=== PATIENT | female | born 1955 | race Caucasian/White ===

== ENCOUNTER 2024-06-03 15:58 | Outpatient (CLI) | payer MEDICARE, BC | END 2024-06-03 15:59 | disposition home or self-care (01) | LOC: RAD 15:58 | PROVIDERS: ATTEND Family Medicine | DX: M25.531 Pain in right wrist (principal) ==

== ENCOUNTER 2024-06-10 14:08 | Outpatient (CLI) | payer MEDICARE, BC | END 2024-06-10 14:09 | disposition home or self-care (01) | LOC: SCSMRI 14:08 | PROVIDERS: ATTEND Family Medicine | DX: G25.2 Other specified forms of tremor (principal); M54.11 Radiculopathy, occipito-atlanto-axial region; M47.812 Spondylosis without myelopathy or radiculopathy, cervical region; M48.02 Spinal stenosis, cervical region | CPT/HCPCS: 70551; 72141 ==

== ENCOUNTER 2025-06-24 16:10 | Outpatient (CLI) | payer MEDICARE, BC | END 2025-06-24 16:11 | disposition home or self-care (01) | LOC: SCSRAD 16:10 | PROVIDERS: ATTEND Internal Medicine Gastroenterology | DX: K56.41 Fecal impaction (principal); R19.4 Change in bowel habit; Z86.0100 Personal history of colon polyps, unspecified | CPT/HCPCS: 74018 ==

== ENCOUNTER 2025-10-17 13:59 | Outpatient (CLI) | payer MEDICARE, BC ==
[2025-10-17 14:59] LABS: #Basophils 0.11 10x3/uL (0.0-0.2); #Eosinophils 0.37 10x3/uL (0.0-0.7); #Monocytes 1.10 10x3/uL (0.11-0.59); #Neutrophils 6.11 10x3/uL (1.40-6.50); %Basophils 1.0 % (0.0-1.0); %Eosinophils 3.4 % (0.0-10.0); %Lymphocytes 29.1 % (21.0-51.0); %Monocytes 10.1 % (0.0-10.0); %Neutrophils 56.0 % (42.0-75.0); Hematocrit 42.9 % (36.0-47.0); Hemoglobin 14.1 g/dL (12.0-16.0); Mean Corpuscular Hemoglobin 29.3 pg (27.0-31.0); Mean Corpuscular Volume 89.2 fL (78.0-98.0); Platelet Count 273 10x3/uL (130-400); Red Blood Cell (RBC) Count 4.81 mill/uL (4.20-5.40); White Blood Cell (WBC) Count 10.90 10x3/uL (4.8-10.8)
[2025-10-17 15:10] LABS: ALT (SGPT) 15 U/L (Less than 34); AST (SGOT) 19 U/L (11-34); Albumin 3.6 g/dL (3.1-4.5); Alkaline Phosphatase 59 U/L (40-110); Anion Gap 13 mmol/L (10-20); BUN (Urea Nitrogen) 26 mg/dL (9.8-20.1); Bilirubin, Direct 0.1 mg/dL (0.1-0.3); Bilirubin, Total 0.2 mg/dL (0.3-1.2); Calc. Creatinine Clearance 0 mL/min (70-130); Calcium 9.8 mg/dL (7.8-10.44); Carbon Dioxide 26 mmol/L (23-31); Chloride 104 mmol/L (98-107); Glucose 79 mg/dL (80-115); Potassium 3.8 mmol/L (3.5-5.1); Sodium 139 mmol/L (136-145)
[2025-10-17 15:13] LABS: INR-International Normal Ratio 1.0; Prothrombin Time 12.8 sec (12.0-14.7)
[2025-10-17 15:14] LABS: PTT 29.2 sec (22.9-36.1)
== END 2025-10-17 14:00 | disposition home or self-care (01) ==
LOC: LABBT 13:59
PROVIDERS: ATTEND Orthopaedic Surgery Hand Surgery
DX: Z01.818 Encounter for other preprocedural examination (principal); T84.84XA Pain due to internal orthopedic prosthetic devices, implants and grafts, initial encounter
CPT/HCPCS: 80048; 80076; 85025; 85610; 85730; 93005; 93010

== ENCOUNTER 2025-10-23 02:31 | Inpatient (IN) | payer MEDICARE, BC ==
[2025-10-23] MEDS ORDERED: Norepinephrine 8 MG/0.9% NS 250 ML ONE (03:09)
[2025-10-23 03:21] LABS: #Basophils 0.03 10x3/uL (0.0-0.2); #Eosinophils 0.30 10x3/uL (0.0-0.7); #Monocytes 0.61 10x3/uL (0.11-0.59); #Neutrophils 9.97 10x3/uL (1.40-6.50); %Basophils 0.3 % (0.0-1.0); %Eosinophils 2.5 % (0.0-10.0); %Lymphocytes 5.9 % (21.0-51.0); %Monocytes 5.2 % (0.0-10.0); %Neutrophils 84.5 % (42.0-75.0); Hematocrit 39.1 % (36.0-47.0); Hemoglobin 12.9 g/dL (12.0-16.0); Mean Corpuscular Hemoglobin 29.5 pg (27.0-31.0); Mean Corpuscular Volume 89.3 fL (78.0-98.0); Platelet Count 186 10x3/uL (130-400); Red Blood Cell (RBC) Count 4.38 mill/uL (4.20-5.40); White Blood Cell (WBC) Count 11.79 10x3/uL (4.8-10.8)
[2025-10-23 03:38] LABS: ALT (SGPT) 13 U/L (Less than 34); AST (SGOT) 27 U/L (11-34); Albumin 2.8 g/dL (3.1-4.5); Alkaline Phosphatase 76 U/L (40-110); Anion Gap 18 mmol/L (10-20); BUN (Urea Nitrogen) 27 mg/dL (9.8-20.1); Bilirubin, Total 0.4 mg/dL (0.3-1.2); CK (CPK) 92 U/L (29-168); Calc. Creatinine Clearance 0 mL/min (70-130); Calcium 8.5 mg/dL (7.8-10.44); Carbon Dioxide 19 mmol/L (23-31); Chloride 107 mmol/L (98-107); Globulin 3.3 g/dL (2.4-3.5); Glucose 118 mg/dL (80-115); Lipase 12 U/L (8-78); Potassium 3.0 mmol/L (3.5-5.1); Sodium 141 mmol/L (136-145)
[2025-10-23] MEDS ORDERED: Acetaminophen 500 MG TAB ONE (03:44)
[2025-10-23] MEDS ORDERED: Potassium Bicarbonate/Cit Ac 20 MEQ TAB ONE (03:45)
[2025-10-23] MEDS ORDERED: Ventilator Sedation Protocol 1 EACH FS SCH (05:30)
[2025-10-23] MEDS ORDERED: Propofol BOLUS 1,000 MG/100 ML VIAL IV PRN (05:45)
[2025-10-23] MEDS ORDERED: DISCONTINUE PREVIOUS NARCOTIC PAIN MEDICATIONS AND BENZODIAZEPINES FS SCH (05:45)
[2025-10-23] MEDS ORDERED: Fentanyl BOLUS 100 ML IVPB PRN (05:45)
[2025-10-23] MEDS ORDERED: Calcium Carbonate 500 MG ChewTAB PO PRN (06:10)
[2025-10-23] MEDS ORDERED: Ondansetron PF 4 MG/2 ML Vial IVP PRN (06:10)
[2025-10-23] MEDS: Vancomycin (BATCH) 2.5 GM in Premix 1 BAG IVPB SCH (06:34)
[2025-10-23] MEDS ORDERED: Electrolyte Replacement Protocol 1 EACH FS SCH (09:30)
[2025-10-23] MEDS ORDERED: Magnesium Sulfate In Water 4 GM in Premix 1 BAG IVPB PRN (09:30)
[2025-10-23] MEDS ORDERED: PHOS-NAK 1 PKT PACK PO PRN (09:30)
[2025-10-23] MEDS ORDERED: Potassium Chloride 20 MEQ in Premix 1 BAG IVPB PRN (09:30)
[2025-10-23] MEDS: Pantoprazole 40 MG VIAL IVP SCH (09:33)
[2025-10-23] MEDS: FLU (Fluad Triv) 25-26 (65UP)PF 45 MCG/0.5 ML Syringe IM ONE (09:34)
[2025-10-23] MEDS ORDERED: Iopamidol-370 76% 500 ML MDV (1 ML CHARGE) ONE (10:07)
[2025-10-23] MEDS: Dexamethasone 10 MG/ML VIAL SLOW IVP SCH (11:08)
[2025-10-23] MEDS: Norepinephrine 8 MG/0.9% NS 250 ML IVPB SCH (14:26)
[2025-10-23] MEDS: Midazolam In 0.9 % NaCl/PF 100 ML IVPB SCH (20:23)
[2025-10-24 04:40] LABS: #Basophils 0.04 10x3/uL (0.0-0.2); #Eosinophils Less than 0.03 10x3/uL (0.0-0.7); #Monocytes 1.34 10x3/uL (0.11-0.59); #Neutrophils 13.45 10x3/uL (1.40-6.50); %Basophils 0.2 % (0.0-1.0); %Eosinophils 0.1 % (0.0-10.0); %Lymphocytes 7.7 % (21.0-51.0); %Monocytes 8.2 % (0.0-10.0); %Neutrophils 82.0 % (42.0-75.0); Hematocrit 33.8 % (36.0-47.0); Hemoglobin 11.2 g/dL (12.0-16.0); Mean Corpuscular Hemoglobin 29.8 pg (27.0-31.0); Mean Corpuscular Volume 89.9 fL (78.0-98.0); Platelet Count 186 10x3/uL (130-400); Red Blood Cell (RBC) Count 3.76 mill/uL (4.20-5.40); White Blood Cell (WBC) Count 16.40 10x3/uL (4.8-10.8)
[2025-10-24 04:57] LABS: Anion Gap 16 mmol/L (10-20); BUN (Urea Nitrogen) 33 mg/dL (9.8-20.1); Calc. Creatinine Clearance 47 mL/min (70-130); Calcium 8.9 mg/dL (7.8-10.44); Carbon Dioxide 20 mmol/L (23-31); Chloride 111 mmol/L (98-107); Glucose 112 mg/dL (80-115); Magnesium 2.0 mg/dL (1.6-2.6); Potassium 3.6 mmol/L (3.5-5.1); Sodium 143 mmol/L (136-145)
[2025-10-24] MEDS: Pantoprazole 40 MG VIAL IVP SCH (09:11)
[2025-10-24] MEDS: Dexamethasone 10 MG/ML VIAL SLOW IVP SCH (09:11)
[2025-10-24] MEDS: Gabapentin 300 MG CAP PO SCH (20:27)
[2025-10-24] MEDS: Mirtazapine 15 MG TAB PO SCH (20:27)
[2025-10-24] MEDS: Mupirocin 1 GM TUBE TP SCH (20:27)
[2025-10-24] MEDS: ALPRAZolam 0.25 MG TAB PO PRN (23:14)
[2025-10-25 05:57] LABS: #Basophils 0.03 10x3/uL (0.0-0.2); #Eosinophils Less than 0.03 10x3/uL (0.0-0.7); #Monocytes 1.23 10x3/uL (0.11-0.59); #Neutrophils 10.03 10x3/uL (1.40-6.50); %Basophils 0.2 % (0.0-1.0); %Eosinophils 0.0 % (0.0-10.0); %Lymphocytes 12.3 % (21.0-51.0); %Monocytes 9.5 % (0.0-10.0); %Neutrophils 77.5 % (42.0-75.0); Hematocrit 35.2 % (36.0-47.0); Hemoglobin 10.9 g/dL (12.0-16.0); Mean Corpuscular Hemoglobin 29.2 pg (27.0-31.0); Mean Corpuscular Volume 94.4 fL (78.0-98.0); Platelet Count 193 10x3/uL (130-400); Red Blood Cell (RBC) Count 3.73 mill/uL (4.20-5.40); White Blood Cell (WBC) Count 12.96 10x3/uL (4.8-10.8)
[2025-10-25 06:08] LABS: Anion Gap 12 mmol/L (10-20); BUN (Urea Nitrogen) 36 mg/dL (9.8-20.1); Calc. Creatinine Clearance 55 mL/min (70-130); Calcium 9.1 mg/dL (7.8-10.44); Carbon Dioxide 19 mmol/L (23-31); Chloride 114 mmol/L (98-107); Glucose 85 mg/dL (80-115); Potassium 3.9 mmol/L (3.5-5.1); Sodium 141 mmol/L (136-145)
[2025-10-25 07:38] VITALS: BMI 31.7
[2025-10-25] MEDS ORDERED: DC Sedation Protocol FS ONE (07:49)
[2025-10-25] MEDS: Divalproex Sodium DR 500 MG TAB PO SCH (09:19)
[2025-10-25] MEDS: Rosuvastatin 20 MG TAB PO SCH (09:22)
[2025-10-25] MEDS: Triamterene/Hydrochlorothiazide 37.5 mg/25 mg Tablet PO SCH (09:22)
[2025-10-25] MEDS: Primidone 50 MG TAB PO SCH (09:41)
[2025-10-25 11:48] VITALS: BMI 31.7
[2025-10-26 05:24] LABS: #Basophils 0.03 10x3/uL (0.0-0.2); #Eosinophils 0.34 10x3/uL (0.0-0.7); #Monocytes 1.06 10x3/uL (0.11-0.59); #Neutrophils 5.49 10x3/uL (1.40-6.50); %Basophils 0.3 % (0.0-1.0); %Eosinophils 3.9 % (0.0-10.0); %Lymphocytes 20.6 % (21.0-51.0); %Monocytes 12.0 % (0.0-10.0); %Neutrophils 62.2 % (42.0-75.0); Hematocrit 35.6 % (36.0-47.0); Hemoglobin 11.4 g/dL (12.0-16.0); Mean Corpuscular Hemoglobin 28.9 pg (27.0-31.0); Mean Corpuscular Volume 90.1 fL (78.0-98.0); Platelet Count 198 10x3/uL (130-400); Red Blood Cell (RBC) Count 3.95 mill/uL (4.20-5.40); White Blood Cell (WBC) Count 8.83 10x3/uL (4.8-10.8)
[2025-10-26 05:43] LABS: Anion Gap 12 mmol/L (10-20); BUN (Urea Nitrogen) 34 mg/dL (9.8-20.1); Calc. Creatinine Clearance 53 mL/min (70-130); Calcium 9.0 mg/dL (7.8-10.44); Carbon Dioxide 25 mmol/L (23-31); Chloride 106 mmol/L (98-107); Glucose 76 mg/dL (80-115); Potassium 3.7 mmol/L (3.5-5.1); Sodium 139 mmol/L (136-145)
[2025-10-26] MEDS: Acetaminophen 325 MG TAB PO PRN (20:49)
[2025-10-28 08:30] VITALS: BP 103/63; TEMP 97.2
== END 2025-10-28 13:31 | DRG 871 ==
LOC: ERS 02:31 → ERHOLD 05:33 → CCU 06:11 → T4-B 10-25 21:37
PROVIDERS: ADMIT Student in an Organized Health Care Education/Training Program; ATTEND Internal Medicine
PROC: 5A1945Z Respiratory Ventilation, 24-96 Consecutive Hours (ICD-10-PCS; principal; 2025-10-23)
PROC: 0BH17EZ Insertion of Endotracheal Airway into Trachea, Via Natural or Artificial Opening (ICD-10-PCS; 2025-10-23)
PROC: 3E03329 Introduction of Other Anti-infective into Peripheral Vein, Percutaneous Approach (ICD-10-PCS; 2025-10-23)
PROC: 3E033XZ Introduction of Vasopressor into Peripheral Vein, Percutaneous Approach (ICD-10-PCS; 2025-10-23)
DX: A41.51 Sepsis due to Escherichia coli [E. coli] (principal); J69.0 Pneumonitis due to inhalation of food and vomit; R65.21 Severe sepsis with septic shock; J96.01 Acute respiratory failure with hypoxia; S12.300A Unspecified displaced fracture of fourth cervical vertebra, initial encounter for closed fracture; N17.9 Acute kidney failure, unspecified; E87.20 Acidosis, unspecified; N10 Acute pyelonephritis; Z88.8 Allergy status to other drugs, medicaments and biological substances; Z91.018 Allergy to other foods; I10 Essential (primary) hypertension; E03.9 Hypothyroidism, unspecified; Z98.890 Other specified postprocedural states; Z87.820 Personal history of traumatic brain injury; N18.30 Chronic kidney disease, stage 3 unspecified; E87.6 Hypokalemia; E05.90 Thyrotoxicosis, unspecified without thyrotoxic crisis or storm; W19.XXXA Unspecified fall, initial encounter; D64.9 Anemia, unspecified
CPT/HCPCS: 31500; 36415; 36416; 36556; 36600; 70450; 70498; 71045; 72125; 72141; 74177; 80048; 80053; 81001; 82140; 82550; 82805; 83605; 83690; 83735; 84100; 84439; 84443; 84484; 85025; 87040; 87077; 87086; 87186; 87428; 93005; 94002; 94003; 96365; 96366; 96368; 99292; J0295; J0692; J0696; J1100; J1885; J2250; J2470; J2704; J3373; J7120; Q9967